=== PATIENT | female | born 1960 | race Two or more races ===

== ENCOUNTER 2018-10-12 18:59 | Emergency (ER) | payer OTHER ==
[~2018-10-12] VITALS: Ht 147.3 cm; Wt 53.1 kg
[2018-10-12 19:55] VITALS: Ht 147.3 cm; Wt 53.1 kg
[2018-10-12 22:31] VITALS: BP 134/75
== END 2018-10-12 22:32 | disposition home or self-care (01) ==
LOC: ED 18:59
DX: S10.11XA Abrasion of throat, initial encounter (principal); I10 Essential (primary) hypertension; X58.XXXA Exposure to other specified factors, initial encounter; Y93.89 Activity, other specified; Y92.89 Other specified places as the place of occurrence of the external cause; Y99.8 Other external cause status

== ENCOUNTER 2019-01-10 07:38 | Emergency (ER) | payer OTHER ==
[~2019-01-10] VITALS: Ht 149.9 cm; Wt 52.6 kg
[2019-01-10 07:51] VITALS: Ht 149.9 cm; Wt 52.6 kg
[2019-01-10 10:20] VITALS: BP 131/71
== END 2019-01-10 10:44 | disposition home or self-care (01) ==
LOC: ED 07:38
DX: S66.911A Strain of unspecified muscle, fascia and tendon at wrist and hand level, right hand, initial encounter (principal); S46.911A Strain of unspecified muscle, fascia and tendon at shoulder and upper arm level, right arm, initial encounter; I10 Essential (primary) hypertension; W01.0XXA Fall on same level from slipping, tripping and stumbling without subsequent striking against object, initial encounter; Y93.89 Activity, other specified; Y92.89 Other specified places as the place of occurrence of the external cause; Y99.8 Other external cause status
CPT/HCPCS: 90715; J7510; Q0163